=== PATIENT | male | born 1945 | race Caucasian/White ===

== ENCOUNTER 2016-11-26 05:51 | Emergency (ER) | payer MEDICARE ==
[~2016-11-26] VITALS: Ht 175.3 cm; Wt 139.1 kg
[~2016-11-26 05:51] MED LIST: ACET-97 PO; ALBU8.5H4 INHALATION; ASPI-628 PO; ATOR40TA69 PO; CLOP75TA3 PO; FLUN25SP NS; FLUO20CA25 PO; ISOS60TA PO; LISI10TA2 PO; LORA10TA7 PO; MECL-114 PO; METO25TA6 PO; NITR0.4T SL; ONDA8TAB10 PO; SULF1TAB7 PO; SYMINH INHALATION
[2016-11-26 05:55] VITALS: BP 143/103; PULSE 101; RESP 24; O2SAT 97
[2016-11-26 06:21] LABS: BASOPHILS % (AUTO) 0.6 % (0-3); MONOCYTES % (AUTO) 7.5 % (4-12); Mean Corpuscular Hemoglobin 27.3 pg (27.0-35.0); Mean Corpuscular Volume 80.9 fL (81-100); NEUTROPHILS % (AUTO) 62.7 % (40-74); Platelet Count 138 bil/L (150-400)
[2016-11-26 06:33] LABS: TROPONIN T 0.01 ug/L (0.0-0.011)
[2016-11-26] MEDS ORDERED: METO-369 PO (06:34)
[2016-11-26] MEDS ORDERED: LISI-567 PO (06:34)
[2016-11-26] MEDS ORDERED: BUDE10.2 INHALATION (06:34)
--- NOTE | 2016-11-26 06:35 | ED.REPORT ---
HPI-Chest Pain 40 and Over Date of Service Nov 26, 2016 ED Provider: Radha Viera MD Patient is a 71 year old male with a history of CAD, paroxysmal atrial fibrillation, COPD and hypertension who presents to the ED complaining that he is atrial fibrillation onset 529. Associated symptoms include mild chest discomfort, increased fatigue over the past few days, leg swelling and increased shortness of breath. He denies fever, cough or chills. The patient reports that he has felt his heart skip a beat for the past few days but today has been worse and lasted longer than his usual atrial fibrillation episodes. The last time he was in atrial fibrillation, he was going to be cardioverted but he spontaneously converted himself back into sinus. He currently takes Plavix every other day and extended release Metoprolol BID. Patient was last seen in 07/18 complaining of hematuria and chest pain. An urinalysis showed no evidence of UTI at that time. Nursing Notes Stated Complaint: CHEST PAIN, AFIB Chief Complaint: Dysrhythmia/Cardiac Nursing Notes Reviewed: Yes Allergies: Coded Allergies: Honey Bee (Verified Allergy, Severe, Anaphylaxis, LOC, 11/26/16) LOC as child codeine (Verified Allergy, Unknown, UNKNOWN, 11/26/16) niacin (Verified Adverse Reaction, Severe, Dizziness, LOC, 11/26/16) Collapses to point of passing out fentanyl (Verified Adverse Reaction, Unknown, Restlessness, 11/26/16) Makes him "hyper" Scheduled Aspirin (Aspir 81) 81 Mg Tablet.dr 81 MG PO sat and sat TAKES SATURDAY AND SATURDAY Atorvastatin Calcium (Atorvastatin Calcium) 40 Mg Tablet 40 MG PO DAILY Budesonide/Formoterol 80-4.5 mcg Inh (Symbicort 80-4.5 mcg Inh) 120 Puff Inhaler 2 PUFF INHALATION BID Clopidogrel Bisulfate (Plavix) 75 Mg Tablet 75 MG PO DAILY Fluoxetine (Fluoxetine) 20 Mg Capsule 20 MG PO DAILY Isosorbide Mononitrate (Imdur) 60 Mg Tab.sr.24h 60 MG PO DAILY Lisinopril (Lisinopril) 20 Mg Tablet 20 MG PO DAILY Metoprolol Succinate ER (Metoprolol Succinate ER) 50 Mg Tab.er.24h 50 MG PO BID Sulfamethoxazole/Trimeth 800-160 mg (Bactrim DS) 1 Each Tablet 1 TABLET PO BID Scheduled PRN Acetaminophen (Acetaminophen) 500 Mg Tablet 500 MG PO PRN PRN PRN For Pain Albuterol HFA (Albuterol HFA) 8.5 Gm Hfa.aer.ad 1.2 PUFF INHALATION Q 4-6HRS PRN PRN PRN For Shortness of Breath Flunisolide (Flunisolide) 25 Ml [place] 25 ML NS BID PRN PRN allergi Loratadine (Loratadine) 10 Mg Tablet 10 MG PO DAILY PRN PRN allergies Meclizine (Bonine) 25 Mg Tab.chew 25 MG PO BID PRN PRN For Dizziness Nitroglycerin SL (Nitrostat) 0.4 Mg Tab.subl 0.4 MG SL Q5MIN PRN PRN CHEST PAIN Ondansetron ODT (Ondansetron ODT) 8 Mg Tab.rapdis 8 MG PO QID PRN PRN For Nausea General Time Seen by MD: 06:01 Chief Complaint Other (atrial fibrillation) Hx Obtained From: Patient Arrived By: Walk-in Sudden in Onset?: Yes Onset Occurred: 1 - 4 hours ago Symptom Duration: Since onset Location: : Substernal Quality: Pressure Radiation: : Does not radiate Severity: Current: Mild Similar Sx Previous: Yes Past Medical History Past Medical History Notes: PCP: Dr. Ford marketing research coordinator: Dr. Cooley Past Medical History chronic sinusitis Heart Murmur Valvular Heart Disease (Mild ) Headaches Obstructive sleep apnea on CPAP. Nicotine dependence in remission. Bilateral inguinal hernias. Urinary retention, bilateral prostatic hypertrophy, failure of medical therapy and previous cooled thermo therapy s/p gyrus transurethral resection of prostate on 05/25/13. Reports: COPD, Coronary artery disease, GERD, Hyperlipidemia, Hypertension Reports: Atrial fibrillation, Morbid Obesity Past Surgical History Gyrus transurethral resection of prostate on 05/25/13. Right rotator cuff repair in 2003. cardiac surgery (Heart cath w/ stenting x2 12/2005 and 04/2007) Reports: Appendectomy Smoking History Unknown if Ever Smoker Social History Alcohol Use: "Social" Drug Use: Denies drug use Other Social History: Good social support Ambulatory Status Independent Review of Systems Constitutional: Reports: Fatigue, Denies: Chills Respiratory: Reports: Shortness of breath, Denies: Non-productive cough Cardiovascular: Reports: Chest pain, Palpitations Musculoskeletal: Reports: Extremity swelling Complete sys rev & neg: except as marked. Physical Exam Initial Vital Signs Vital Signs (First) Date Time Temp Pulse Resp B/P Pulse Ox O2 Delivery O2 Flow Rate FiO2 11/26/16 05:55 36.4 101 24 143/103 97 Room Air 11/26/16 08:23 2 Initial VS: Reviewed General/Constitutional: Awake, Alert Respiratory / Chest: Atraumatic, Breath sounds NL, Breath sounds = bilat, No respiratory distress, No wheezing Cardiovascular: Heart sounds NL, No murmurs Heart Rate / Rhythm: Positive: Irreg irregular rhythm Abdomen: Atraumatic, Soft, Non-tender Lower Extremity / Pelvis / MS: Atraumatic trace bilateral edema Skin: Atraumatic, Color NL, No rash, Warm, Dry Neurologic: Oriented X3, Speech NL Head / Eyes: Atraumatic, Normocephalic Interpretation & Diagnostics Lab Results Interpretation Result Diagram: 11/26/16 0600 11/26/16 0600 Test 11/26/16 06:00 White Blood Count 5.4th/mm3 (3.8-10.1) Red Blood Count 5.13mil/mm3 (4.40-5.80) Hemoglobin 14.0g/dL (13.8-17.2) Hematocrit 41.5% (41.0-50.0) Mean Corpuscular Volume 80.9fL (81-100) Mean Corpuscular Hemoglobin 27.3pg (27.0-35.0) Mean Corpuscular Hemoglobin Concent 33.7% (32.0-37.0) Red Cell Distribution Width 14.3% (12.3-15.4) Platelet Count 138bil/L (150-400) Neutrophils (%) (Auto) 62.7% (40-74) Lymphocytes (%) (Auto) 25.8% (14-46) Monocytes (%) (Auto) 7.5% (4-12) Eosinophils (%) (Auto) 3.0% (0-5) Basophils (%) (Auto) 0.6% (0-3) Sodium Level 139mEq/L (134-144) Potassium Level 4.1mEq/L (3.5-5.2) Chloride Level 104mEq/L (97-108) Carbon Dioxide Level 24mmol/L (18-29) Blood Urea Nitrogen 17mg/dL (8-27) Creatinine 0.92mg/dL (0.76-1.27) Estimat Glomerular Filtration Rate 86mL/min (>59) Glucose Level 174mg/dL (60-99) Calcium Level 9.9mg/dL (8.5-10.1) Magnesium Level 1.8mg/dL (1.6-2.6) Total Bilirubin 0.3mg/dL (0.0-1.2) Aspartate Amino Transf (AST/SGOT) 17U/L (0-50) Alanine Aminotransferase (ALT/SGPT) 16U/L (0-44) Alkaline Phosphatase 166U/L (25-160) Troponin T 0.010ug/L (0.0-0.011) Total Protein 6.6g/dL (6.4-8.4) Albumin 4.1g/dL (3.4-5.0) ECG Interpretation ECG Interpretation: atrial fibrillation, rate 112 has history of atrial fibrillation but comparison EKG showed sinus rhythm Time: 06:10 Interpreted by: ED physician ECG Interpretation: post cardioversion: sinus rhythm, rate 62 Time: 08:34 Interpreted by: ED physician Normal ECG Interpretation: Normal rate, Normal sinus rhythm X-Ray Chest Interpretation Chest Xray Interpretation: no acute findings View: Portable Interpretation / Wet Read by: Wet read ED physician Procedures Electrical Cardioversion Time: 08:29 Procedure Performed by: ED physician Indication: Atrial fibrillation Consent / Setup / Site Prep: Informed consent provided, Consent from patient , Time-out performed, Placed on oxygen, Placed on pulse oximeter, Place on erp programmer, Hand hygiene observed Procedural Sedation/Analgesia: Sedation: Propofol Joules: 100 (synchronized) Procedure Successful: Yes Post-Procedure Rhythm: Normal sinus rhythm Post-Procedure / Complications: No complications, Condition improved, Tolerated procedure well, Patient stable Proced Mod Sedation/Analgesia Time: 08:27 Procedure Performed by: ED physician Sedation Time: 10 - 15 min (total time of 11 min for sedation) Consent / Setup: Informed consent provided, Consent from patient, Time-out performed, Hand hygiene observed, Head of bed at 30-60 deg Indication: Other (cardioversion) Preparation: manager assembly applied, Pulse oximeter applied, Constant attendance, IV access established, Eval last meal time, Supplemental oxygen, Procedure explained, Suction available, End tidal CO2 mon applied VS Prior to Procedure: All vital signs normal Mallampati: Class & Anatomy: 2 top tonsil/uvula/palate Airway Exam: Normal facial anatomy, Normal neck anatomy, Normal anatomy CVS/Resp Exam: Normal breath sounds, Normal heart sounds Neuro Exam: Alert, No acute distress, Responsive Sedation: Sedation: Propofol (40mg) ASA Classification: 2 mild systemic disease Response During Procedure: Handled secretions adeq, Maintained airway well, Oxygenation stable, Sedation appropriate, Vital signs stable Complications During/After: None Reversal: None required Mental Status After Procedure: Alert, Oriented X3, Response to verbal stim, Response to painful stim Post-Procedure: Alert prior to discharge, Pt rtn pre-proc baseline, Vital signs normal Attestation: I performed procedure, I performed sedation Re-Eval/Medical Decision Med Decision/Clinical Course 71-year-old woman with known paroxysmal A. fib presents with a paroxysm of atrial fibrillation. He woke this morning at 530 AM and noticed the irregularity started shortly thereafter. He describes being slightly short of breath a slight heaviness on his chest but mostly a "wrong" feeling. Similar to prior episodes. He presents for cardioversion. He is not anticoagulated, apparently has had significant bleeding difficulties. He does take clopidogrel every other day. At this point, he is rate controlled and hemodynamically stable. Labs are obtained unremarkable. Informed consent was obtained and he was cardioverted with 100 J without any complications. Plan continue all of his usual medications and follow-up with Dr. Cooley in the next 1-2 weeks to see if any medication changes or addition of antiarrhythmic drugs may be helpful in preventing future episodes of atrial fibrillation Time of Eval: 07:57 Re-Evaluation/Progress Note: Discussed plan for cardioversion since patient has not converted himself into sinus rhythm. Patient understands and agrees to procedure. All questions were addressed. Time of Eval: 08:37 Re-Evaluation/Progress Note: Patient remains in sinus rhythm post cardioversion. Time of Eval: 10:02 Patient Status: Condition improved Re-Evaluation/Progress Note: Discussed plan to consult cardiology and plan for discharge after. Time of Eval: 10:11 Re-Evaluation/Progress Note: Discussed plan for outpatient follow up with cardiology. Patient understands and agrees to plan. All questions were addressed. Consultation : Consulted With: Cardiology Call Returned at: 10:05 Note: Consult with Dr. Ham, marketing research coordinator, who recommends the patient follow up with Dr. Cooley in the next week and no acute treatment in the ED. Counseled Regarding: Diagnosis, Lab results, Need for follow-up, When/why to return to ED Discharge & Departure Primary Impression: Atrial fibrillation Atrial fibrillation type: unspecified Qualified Code: I48.91 - Unspecified atrial fibrillation Disposition: Home Discharge Condition All VS Reviewed: Yes Condition: Stable Patient Instructions: A-fib (Atrial Fibrillation) (ED) Additional Instructions: Here in the emergency department you were in atrial fibrillation. We cardioverted you back into sinus rhythm. Follow up with your marketing research coordinator next week regarding medications for your atrial fibrillation. Return to the emergency department if you develop any new or concerning symptoms including chest pain, increased shortness of breath, your heart goes back into atrial fibrillation or other concerning symptoms. Referrals: Miguel Echeverria MD (PCP) Silvia Galaviz MD Attestation Portions of this note were transcribed by Carolina Turner. I, Dr. Viera personally performed the history, physical exam and medical decision-making; I reviewed and confirmed the accuracy of the information in the transcribed note. Signed by: Dia Ruff, 11/26/16 copies to: Miguel Echeverria MD; Silvia Galaviz MD, Shawna L MD Nov 26, 2016 06:35 Nallely Turner Nov 26, 2016 06:41
[2016-11-26 06:44] LABS: Magnesium 1.8 mg/dL (1.6-2.6)
[2016-11-26 07:40] VITALS: BP 139/72; PULSE 114; RESP 14; O2SAT 95
[2016-11-26] MEDS ORDERED: Propofol 10 mg/mL 20 mL Inj IVPUSH ONE (08:00)
--- NOTE | 2016-11-26 08:14 | DRSVH ---
PROCEDURE: X-RAY CHEST ONE VIEW, PORTABLE ([id number]) INDICATIONS: chest pain/ shortness of breath TECHNIQUE: One view of the chest was acquired. COMPARISON: [facility], CT, ABD/PELVIS W/CON (PNL), 09/13/2011, 9:17. [facility], CR, CHEST 2VW, 03/02/2013, 12:32. [facility], CR, CHEST 1VW (PORTABLE), 09/18/2014, 7:30. FINDINGS: Surgical changes and devices: None. Lungs and pleura: No pleural effusions or pneumothorax. Lungs are little if any changed from compar daryl plain films, with what appears to be a thin band of linear atelectasis or scarring lateral left lung base. Mediastinum: Mediastinal contours appear normal. Heart size is normal. Bones and chest wall: No suspicious bony lesions. Overlying soft tissues appear unremarkable. IMPRESSION: A thin band of what appears to be scarring or atelectasis is present at the left lower lo be, no acute disease. A deep inspiratory PA and lateral chest plain [facility]. Dictated by: Edwin Araiza M.D. on 11/26/2016 at 8:11 Approved by: Edwin Araiza M.D. on 11/26/2016 at 8:13
[2016-11-26 08:23] VITALS: BP 161/98; PULSE 122; RESP 16; O2SAT 96
[2016-11-26 08:48] VITALS: BP 155/81; PULSE 59; RESP 12; O2SAT 96
[2016-11-26 09:46] VITALS: BP 147/69; PULSE 57; RESP 14; O2SAT 95
[2016-11-26 10:28] VITALS: BP 161/82; PULSE 54; O2SAT 96
== END 2016-11-26 10:26 | disposition home or self-care (01) ==
LOC: SED 05:51
DX: I48.91 Unspecified atrial fibrillation (principal); R53.83 Other fatigue; I10 Essential (primary) hypertension; I25.10 Atherosclerotic heart disease of native coronary artery without angina pectoris; J44.9 Chronic obstructive pulmonary disease, unspecified; K21.9 Gastro-esophageal reflux disease without esophagitis; E78.5 Hyperlipidemia, unspecified; E66.01 Morbid (severe) obesity due to excess calories; Z68.42 Body mass index [BMI] 45.0-49.9, adult; Z95.5 Presence of coronary angioplasty implant and graft; Z79.02 Long term (current) use of antithrombotics/antiplatelets; Z88.5 Allergy status to narcotic agent; Z88.8 Allergy status to other drugs, medicaments and biological substances
CPT/HCPCS: 36415; 71010; 80053; 83735; 84484; 85025; 92960; 93005; 94799; 99152; 99285; J2704